=== PATIENT | male | born 1940 | race Caucasian/White ===

== ENCOUNTER → 2017-10-04 | Day surgery (SDC) | payer OTHER ==
[2017-10-01 09:06] VITALS: BMI 26.4
[~2017-10-04] MED LIST: LACTATED RINGERS 1,000 ML IV SCH; LIDOCAINE 1% 20 ML VIAL (10MG/ML) FOR IV START INTRADERMA ONE; LIDOCAINE 1% INJ 10MG/ML (20 ML MDV) ONE; PROPOFOL 10 MG/ML 20 ML VIAL IV ONE
[2017-10-04 11:46] VITALS: RESP 16; TEMP 97
--- NOTE | 2017-10-04 13:14 | P.PCN ---
Date of Procedure: 10/04/17 Procedure(s) Performed: Procedure: Total colonoscopy. Preoperative diagnosis: Anemia. Postoperative diagnosis: Exam within normal limits. Preparation: HalfLytely prep. Sedation: Was provided by anesthesia. Brief clinical history: The patient is 77-year-old male who is scheduled for this evaluation because of anemia and finding of blood in the stools. This evaluation is to rule out colon neoplasia. He has history of chronic reflux on omeprazole for many years. No other alarm symptoms. Procedure: With the patient on his left lateral decubitus position and after informed consent and adequate sedation, the perianal area was inspected and it did not show any fissures or fistulas. There were no masses felt on digital rectal examination. The Olympus CFQ 160L video colonoscope was then inserted in the rectum in the usual fashion and advanced to the cecum. The mucosa appeared healthy. No obvious polyps or tumors were seen. I retroflexed the endoscope in the rectum before the endoscope was withdrawn. The patient tolerated the procedure well. Plan: The patient was reassured. Consideration can be given for an upper GI workup if he continues to manifest anemia and evidence of possible GI source of bleeding. He will follow up with you as planned.
[2017-10-04 13:25] VITALS: BP 128/89; PULSE 62
== END | disposition home or self-care (01) ==
LOC: ORWHC2ENDO 10:31
DX: D64.9 Anemia, unspecified (principal); K92.1 Melena; K21.9 Gastro-esophageal reflux disease without esophagitis; N40.0 Benign prostatic hyperplasia without lower urinary tract symptoms; I10 Essential (primary) hypertension; E78.5 Hyperlipidemia, unspecified; M19.90 Unspecified osteoarthritis, unspecified site; G20 Parkinson's disease; G62.9 Polyneuropathy, unspecified; Z88.0 Allergy status to penicillin; Z88.8 Allergy status to other drugs, medicaments and biological substances; Z79.1 Long term (current) use of non-steroidal anti-inflammatories (NSAID); Z79.899 Other long term (current) drug therapy
CPT/HCPCS: 45378; J2001; J2704

== ENCOUNTER 2018-03-24 06:17 | Day surgery (SDC) | payer MEDICARE, OTHER ==
[2018-03-21 10:48] VITALS: BMI 26.4
[~2018-03-24 06:17] MED LIST changes: -LIDOCAINE 1% 20 ML VIAL (10MG/ML) FOR IV START INTRADERMA ONE; -LIDOCAINE 1% INJ 10MG/ML (20 ML MDV) ONE; -PROPOFOL 10 MG/ML 20 ML VIAL IV ONE
[2018-03-24 07:01] VITALS: TEMP 98.7
[2018-03-24] MEDS ORDERED: LIDOCAINE 1% INJ 10MG/ML (20 ML MDV) ONE (07:44)
[2018-03-24] MEDS ORDERED: PROPOFOL 10 MG/ML 20 ML VIAL IV ONE (07:44)
[2018-03-24 08:08] VITALS: RESP 16
--- NOTE | 2018-03-24 08:11 | P.PCN ---
Date of Procedure: 03/24/18 Procedure(s) Performed: Procedure: Esophagogastroduodenoscopy and biopsy. Preoperative diagnosis: Chronic reflux symptoms and dysphagia. Postoperative diagnosis: 1. Moderately sized hiatal hernia with no obvious esophagitis or complicated reflux disease. 2. Mild antral gastritis. 3. Biopsies obtained from the antrum and esophagus. Preparation and sedation: Was provided by anesthesia. Brief clinical history: The patient is a 77-year-old male who is scheduled for this evaluation because of chronic reflux symptoms and history of dysphagia. The patient has no weight loss, bleeding or anemia. Procedure: With the patient on his left lateral decubitus position and after informed consent and adequate sedation, I passed the Olympus-GIF 160 video upper endoscope through the cricopharyngeus down the esophagus. GE junction was around 40 cm from the incisors and there was a moderately sized hiatal hernia but no obvious esophagitis or complicated reflux disease including any evidence of strictures or Rodriguez's esophagus. The endoscope was then passed into the stomach which was insufflated with air and inspected in detail including the retroflex view in the cardia. There was minimal mottling and erythema in the antrum but no ulcers or erosions. Pyloric channel, duodenal bulb, post bulbar area and descending duodenum appeared within normal limits. I obtained biopsies from the antrum and esophagus then the endoscope was withdrawn. The patient tolerated the procedure well. Plan: The patient was reassured. Will await biopsy results. Further plans based on his course and biopsy results. He will follow up with you as planned.
[2018-03-24 08:24] VITALS: BP 165/67; PULSE 61
== END 2018-03-24 08:46 | disposition home or self-care (01) ==
LOC: ORWHC2ENDO 06:17
DX: K21.0 Gastro-esophageal reflux disease with esophagitis (principal); K29.50 Unspecified chronic gastritis without bleeding; K44.9 Diaphragmatic hernia without obstruction or gangrene; R13.10 Dysphagia, unspecified; I10 Essential (primary) hypertension; G20 Parkinson's disease; G62.9 Polyneuropathy, unspecified; Z79.899 Other long term (current) drug therapy; Z88.0 Allergy status to penicillin; Z88.8 Allergy status to other drugs, medicaments and biological substances
CPT/HCPCS: 88305; 43239; J2001; J2704

== ENCOUNTER → 2018-04-28 | Outpatient (CLI) | payer MEDICARE ==
--- NOTE | 2018-04-28 17:20 | CONS ---
CONSULTATION DATE OF SERVICE: 04/28/2018 This patient is a 77-year-old gentleman who has been evaluated in the sleep center for possible obstructive sleep apnea-hypopnea syndrome. HISTORY OF PRESENT ILLNESS/SLEEP WAKE EVALUATION: Patient's usual sleep schedule is from around 11 p.m. until 4:30 a.m. He has a TV set in the bedroom, but he does not have significant problems with falling asleep. During sleep he stays with his , has moderate snoring and witnessed episodes of stopped breathing during sleep, according to her. He wakes up with gasping for air, restless legs, choking and nocturia 3 times. In the morning he wakes up tired, has difficulties paying attention, falling asleep during the day, has problems with memory, concentration, irritability. He takes naps 3 times a day at 10:30, 1 p.m. and 4 . [place] Sleepiness Scale is significantly increased at 13. PAST MEDICAL HISTORY: 1. Hypertension. 2. BPH. 3. Parkinson disease. PAST SURGICAL HISTORY: 1. Tonsillectomy. 2. surgery. MEDICATIONS: 1. Losartan. 2. Tamsulosin. 3. Omeprazole. 4. Gabapentin. 5. Carbidopa levodopa. 6. Primidone. 7. acetaminophen. 8. Cetirizine. 9. Metronidazole. 10.Voltaren. 11. . 12.B12. 13. . 14.Some vitamin supplements. SOCIAL HISTORY: Positive for smoking cigars. Alcohol consumption: Occasional beer. FAMILY HISTORY: Hypertension, stroke in his grandparents, arthritis, cancer. REVIEW OF SYSTEMS: Multiple awakenings from sleep. Sleepiness during the day. Pain in the body. PHYSICAL EXAMINATION: GENERAL A pleasant gentleman without distress. VITAL SIGNS: BP 141/76, HR 70, RR 16, height 5 feet 9 inches, weight 142.8, temperature 98.1. Oxygen saturation at room air 96%. Body mass index 28.3. HEENT: PERRLA, EOMI. Evaluation of oropharynx showed tongue protrudes midline; moderately low position of soft palate. NECK: Supple. No JVD. Thyroid is not palpable. Circumference 18 inches. LUNGS: Clear to percussion and to auscultation. Good air exchange. No wheezing or rhonchi. HEART: S1, S2 regular. No murmurs, gallops or rubs. ABDOMEN: Soft and nontender. Bowel sounds are present. No organomegaly appreciated. EXTREMITIES : No clubbing or cyanosis. BROOMMAKER: Awake, alert, and oriented X3. Cranial nerves 2 to 7 intact. There is no fasciculation or atrophy. noted. No focal deficits observed. IMPRESSION: 1. Snoring, witnessed episodes of stopped breathing during sleep, low position of soft palate, multiple awakenings from sleep, wide neck at 18 inches, sleepiness, [place] Sleepiness Scale increased at 13; obstructive sleep apnea-hypopnea syndrome. 2. Hypertension. 3. Benign prostatic hypertrophy. 4. History of Parkinson disease. 5. Status post tonsillectomy. 6. Status post surgery. PLAN: 1. Polysomnography for evaluation of patient's breathing during sleep. 2. CPAP/BiPAP titration if sleep study confirms obstructive sleep apnea-hypopnea syndrome. 3. Preferable position during sleep on the side. 4. No driving if patient feels any sleepiness. Patient is aware of civil and criminal liability for unsafe driving. 5. I will see patient for follow-up visit to explain results of testing and following plan. Thank you very much for referring this patient for consultation. Sincerely, Maco Bradley MD, PhD, FAASM Diplomat of [employer] [employer] [employer] Classroom Teacher of [facility] [place] MMODL / SAEID: [id number] /
== END | disposition home or self-care (01) ==
LOC: SLEEP 14:33
PROVIDERS: ATTEND Internal Medicine
DX: G47.33 Obstructive sleep apnea (adult) (pediatric) (principal); M27.8 Other specified diseases of jaws; R35.1 Nocturia; I10 Essential (primary) hypertension; N40.0 Benign prostatic hyperplasia without lower urinary tract symptoms; Z90.89 Acquired absence of other organs; Z86.69 Personal history of other diseases of the nervous system and sense organs; Z79.899 Other long term (current) drug therapy; Z79.1 Long term (current) use of non-steroidal anti-inflammatories (NSAID); Z79.891 Long term (current) use of opiate analgesic; Z87.891 Personal history of nicotine dependence
CPT/HCPCS: 99211

== ENCOUNTER 2019-04-04 16:01 | Inpatient (IN) | payer OTHER, MEDICARE ==
[2019-04-04] MEDS ORDERED: ATROPINE SULFATE 0.1 MG/ML 10ML SYRINGE IV STA (16:37)
--- NOTE | 2019-04-04 16:46 | ED ---
Arrhythmia/Palpitations HPI - General Chief Complaint: Arrhythmia/Palpitations Stated Complaint: Cardiac Issues Time Seen by Provider: 04/04/19 16:28 Source: patient, EMS Mode of arrival: EMS Limitations: no limitations - History of Present Illness Initial Comments: Patient is a 78-year-old male with a history of dementia who presents with a chief complaint of heart palpitations. The patient was started on Flomax 2 days ago and is currently wearing a Holter monitor. [facility] stating that he had an event, that his heart rate was in the 30s and that he should come in the emergency department. Patient states that other than feeling tired he is a symptomatic. He is ambulatory without assistance and sates that he does not feel light headed when he stands up. He cannot identify any additional inciting incident, no aggravating or alleviating factors. timing is constant. - Related Data Home Medications Medication Instructions Recorded Confirmed Acetaminophen Tab [Tylenol Tab] 1,000 mg PO DAILY PRN 10/01/17 04/04/19 Ammonium Lactate Cream [Lac-Hydrin 1 applic TOPICAL DAILY PRN 10/01/17 04/04/19 12% Cream] Carbidopa-Levodopa ER 25-100Mg 1 tab PO QID 10/01/17 04/04/19 [Sinemet CR 25-100 mg] Cholecalciferol [Vitamin D3] 1,000 unit PO DAILY 10/01/17 04/04/19 Cyanocobalamin (Vitamin B-12) 1,000 mcg PO DAILY 10/01/17 04/04/19 [Vitamin B-12] Diclofenac Sodium [Voltaren Gel] 1 applic TOPICAL DAILY PRN 10/01/17 04/04/19 Folic Acid 1 mg PO DAILY 10/01/17 04/04/19 Gabapentin [Neurontin] 400 mg PO QID 10/01/17 04/04/19 Krill/Om-3/Dha/Epa/Phospho/Ast 900 mg PO DAILY 10/01/17 04/04/19 [[place]-3 Krill Oil 300 mg Sfgl] Losartan [Cozaar] 50 mg PO BID 10/01/17 04/04/19 Magnesium Oxide [Mag-Ox] 250 mg PO DAILY 10/01/17 04/04/19 Nortriptyline [Pamelor] 25 mg PO HS 10/01/17 04/04/19 Omeprazole [PriLOSEC] 20 mg PO AC-BRKFST 10/01/17 04/04/19 Primidone [Mysoline] 125 mg PO BID 10/01/17 04/04/19 Tamsulosin [Flomax] 0.4 mg PO HS 10/01/17 04/04/19 Thiamine [Vitamin B-1] 100 mg PO DAILY 10/01/17 04/04/19 Ubidecarenone [Co Q-10] 100 mg PO DAILY 10/01/17 04/04/19 Aspirin [[place] Aspirin EC] 81 mg PO PC-SUPPER 04/04/19 04/04/19 Donepezil [Aricept] 10 mg PO HS 04/04/19 04/04/19 Ferrous Sulfate [Feosol] 325 mg PO DAILY 04/04/19 04/04/19 Finasteride [Proscar] 5 mg PO PC-SUPPER 04/04/19 04/04/19 HYDROcodone/APAP 10-325MG [[place] 1 tab PO DAILY PRN 04/04/19 04/04/19 10-325] Ibuprofen [Motrin] 800 mg PO BID PRN 04/04/19 04/04/19 Nitrofurantoin Monohyd/M-Cryst 100 mg PO BID 04/04/19 04/04/19 [Macrobid] Vitamin E (Dl,Tocopheryl Acet) 400 unit PO DAILY 04/04/19 04/04/19 [Vitamin E] Allergies Allergy/AdvReac Type Severity Reaction Status Date / Time lisinopril Allergy CAN'T Verified 04/04/19 16:55 REMEMBER Penicillins Allergy Anaphylaxis Verified 04/04/19 16:55 simvastatin [From Zocor] Allergy CAN'T Verified 04/04/19 16:55 REMEMBER Review of Systems ROS Statement: Those systems with pertinent positive or pertinent negative responses have been documented in the HPI. ROS Other: All systems not noted in ROS Statement are negative. Past Medical History Past Medical History: GERD/Reflux, Hypertension, Prostate Disorder, Skin Disorder Additional Past Medical History / Comment(s): PARKINSONS, ROSACEA, TREMORS, NEUR OPATHY FEET/LEGS; MINOR BPH. History of Any Multi-Drug Resistant Organisms: None Reported Past Surgical History: Tonsillectomy Additional Past Surgical History / Comment(s): colonoscopies. bilat cataracts Past Anesthesia/Blood Transfusion Reactions: No Reported Reaction Past Psychological History: No Psychological Hx Reported Smoking Status: Current some day smoker Past Alcohol Use History: Occasional Past Drug Use History: None Reported - Past Family History Father Family Medical History: Cancer General Exam Limitations: no limitations General appearance: alert, in no apparent distress Head exam: Present: atraumatic, normocephalic Eye exam: Present: normal appearance ENT exam: Present: normal exam Neck exam: Present: normal inspection Respiratory exam: Present: normal lung sounds bilaterally. Absent: respiratory distress, wheezes Cardiovascular Exam: Present: bradycardia GI/Abdominal exam: Present: soft. Absent: distended, tenderness Rectal exam: Present: deferred Extremities exam: Present: normal inspection Back exam: Present: normal inspection Neurological exam: Present: alert, oriented X3 Psychiatric exam: Present: normal affect, normal mood Skin exam: Present: warm, dry, intact Course Vital Signs 04/04/19 04/04/19 04/04/19 16:07 16:11 16:14 Temperature 98.4 F Pulse Rate 33 L Pulse Rate [ 26 L Pulse Oximetery ] Respiratory 16 Rate Blood Pressure 157/136 O2 Sat by Pulse 96 98 Oximetry 04/04/19 04/04/19 04/04/19 16:15 16:30 16:45 Temperature Pulse Rate 26 L 29 L Pulse Rate [ Pulse Oximetery ] Respiratory Rate Blood Pressure 157/136 175/60 75/51 O2 Sat by Pulse 97 96 94 L Oximetry 04/04/19 04/04/19 04/04/19 16:50 17:00 17:10 Temperature Pulse Rate 28 L 28 L 25 L Pulse Rate [ Pulse Oximetery ] Respiratory Rate Blood Pressure 177/125 177/125 205/190 O2 Sat by Pulse 96 96 97 Oximetry 04/04/19 04/04/19 04/04/19 17:20 17:30 17:40 Temperature Pulse Rate 28 L 27 L 27 L Pulse Rate [ Pulse Oximetery ] Respiratory Rate Blood Pressure 183/139 179/143 176/141 O2 Sat by Pulse 98 100 100 Oximetry 04/04/19 04/04/19 17:50 18:00 Temperature Pulse Rate 28 L 28 L Pulse Rate [ Pulse Oximetery ] Respiratory Rate Blood Pressure 176/64 176/64 O2 Sat by Pulse 99 100 Oximetry Medical Decision Making - Medical Decision Making Patient is a 78-year-old male presents with a chief complaint of bradycardia. On initial evaluation, vitals are stable though his heart rate is between 25 and 30 bpm. EKG shows evidence of third-degree AV block. Case discussed with Dr. Ventura who states he'll evaluate the patient emergency department. We'll hold on acute treatment at this time given patient's stability. Labs reviewed from outside hospital, they were unremarkable. Currently uploading chest x-ray for review. Labs will be resent, visual be admitted for further evaluation. 5:04 PM Repeat EKG performed at 1658 shows what appears to be a third-degree AV block, Versus a second-degree block with 3 -1 conduction. Ventricular rate is 28 bpm. There are no acute signs of ischemia. Case discussed with Dr. bowman who agrees to admission. Chest x-ray reviewed, does not show any acute process. Laboratory evaluation of this patient is unremarkable. Dr. Ventura will take the patient to the EP lab for pacemaker placement. He discussed this care plan with the patient and the patient is agreeable. patient left the ED in stable condition. - Lab Data Result diagrams: 04/04/19 16:56 04/04/19 16:56 Lab Results 04/04/19 04/04/19 04/04/19 Range/Units 16:56 16:56 16:56 WBC 7.2 (3.8-10.6) k/uL RBC 4.11 L (4.30-5.90) m/uL Hgb 13.4 (13.0-17.5) gm/dL Hct 41.0 (39.0-53.0) % MCV 99.8 (80.0-100.0) fL MCH 32.7 (25.0-35.0) pg MCHC 32.8 (31.0-37.0) g/dL RDW 14.4 (11.5-15.5) % Plt Count 289 (150-450) k/uL Neutrophils % 76 % Lymphocytes % 14 % Monocytes % 7 % Eosinophils % 1 % Basophils % 0 % Neutrophils # 5.4 (1.3-7.7) k/uL Lymphocytes # 1.0 (1.0-4.8) k/uL Monocytes # 0.5 (0-1.0) k/uL Eosinophils # 0.1 (0-0.7) k/uL Basophils # 0.0 (0-0.2) k/uL Sodium 133 L (137-145) mmol/L Potassium 5.1 (3.5-5.1) mmol/L Chloride 100 (98-107) mmol/L Carbon Dioxide 24 (22-30) mmol/L Anion Gap 9 mmol/L BUN 24 H (9-20) mg/dL Creatinine 0.87 (0.66-1.25) mg/dL Est GFR (CKD-EPI)AfAm >90 (>60 ml/min/1.73 sqM) Est GFR (CKD-EPI)NonAf 84 (>60 ml/min/1.73 sqM) Glucose 96 (74-99) mg/dL Calcium 9.3 (8.4-10.2) mg/dL Troponin I <0.012 (0.000-0.034) ng/mL Disposition Clinical Impression: Bradycardia, Heart block Disposition: ADMITTED IP TO THIS HOSP Condition: Fair Decision to Admit Reason: Admit from EC - Out of Hospital Transfer - Req. Specs Out of Hospital Transfer - Requested Specifics: Telemetry Unit
[2019-04-04] MEDS ORDERED: NALOXONE 0.4 MG/ML 1 ML VIAL IV PRN (17:02)
[2019-04-04 17:12] LABS: Basophils % (A) 0 %; Eosinophils # (A) 0.1 k/uL (0-0.7); Eosinophils % (A) 1 %; HGB 13.4 gm/dL (13.0-17.5); Lymphocytes % (A) 14 %; MCH 32.7 pg (25.0-35.0); MCHC 32.8 g/dL (31.0-37.0); MCV 99.8 fL (80.0-100.0); Mean Platelet Volume 7.7; Monocytes # (A) 0.5 k/uL (0-1.0); Monocytes % (A) 7 %; Neutrophils # (A) 5.4 k/uL (1.3-7.7); Neutrophils % (A) 76 %; Platelet Count 289 k/uL (150-450); RBC 4.11 m/uL (4.30-5.90); RDW 14.4 % (11.5-15.5); WBC 7.2 k/uL (3.8-10.6)
[2019-04-04 17:19] LABS: African American GFR (CKD) >90 (>60 ml/min/1.73 sqM); Anion Gap 9 mmol/L; Blood Urea Nitrogen 24 mg/dL (9-20); Calcium 9.3 mg/dL (8.4-10.2); Carbon Dioxide 24 mmol/L (22-30); Chloride 100 mmol/L (98-107); Glucose 96 mg/dL (74-99); Potassium 5.1 mmol/L (3.5-5.1); Sodium 133 mmol/L (137-145)
[2019-04-04] MEDS ORDERED: CLINDAMYCIN 600 MG in DEXTROSE 5% IN WATER 50 ML IVPB STA ×2 (18:09)
[2019-04-04] MEDS ORDERED: IV FLUID CONTINUATION 900 ML IV ONE (18:20)
[2019-04-04] MEDS ORDERED: LIDOCAINE 1% INJ 10MG/ML (20 ML MDV) ONE (18:40)
[2019-04-04] MEDS ORDERED: LIDOCAINE 1% INJ 10MG/ML (20 ML MDV) SQ ONE (18:50)
[2019-04-04] MEDS ORDERED: ACETAMINOPHEN TAB 325 MG TAB PO PRN (19:46)
--- NOTE | 2019-04-04 19:53 | P.CRDCN ---
History of Present Illness History of present illness: This is Dr. 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 Hypertension Anaphylaxis with penicillin Parkinson's disease PLAN: Externalized permanent pacemaker for secured temporary pacing Detailed discussion with the patient and his regarding permanent pacing with Bi V pacing He will be 100% paced in his right ventricle with standard dual-chamber pacing and therefore biventricular pacing would be appropriate, to avoid this HPI Called by ER physician regarding this elderly gentleman who presented with a very slow heart rate Twelve-lead ECG shows heart rate of 29 beats a minute with advanced heart block with 3-1 AV conduction Right bundle branch block left anterior fascicular block minimally prolonged [place] interval, consistent with infra-hisian conduction system disease History of hypertension For the last several months the patient has been feeling weak, may be a bit dizzy. According to his he may have had a few dizzy spells and he He is exhausted week takes lots of naps. He was at the [facility]. They noted a heart rate of 30 beats a minute and after considerable deliberation between some physicians, according to the patient, send him home with a monitor He was later called pacing was told that his heart rate was very slow ROS: No fever chills or rigors, no cough, phlegm or expectoration, no nausea, vomiting or diarrhea, no hematuria, dysuria, no musculoskeletal complaints, no strokes or seizures, no skin lesions. A bit dizzy and weak exhausted for several months No chest discomfort May have fallen and been syncopal. He is not sure EXAMINATION: Elevated blood pressure 10987 3 mmHg Pulse rate 2728 beats a minute regular Breath sounds are clear no rhonchi no crackles Heart sounds are soft, there's a soft systolic murmur Abdomen soft nontender Extremities warm no edema REVIEW OF LABS, ECG & MEDICAL DATA Potassium 5.1 urine mildly increased likely secondary to hypoperfusion White count 7.2 Sodium 133 Creatinine 0.87 Normal troponins Past Medical History Past Medical History: GERD/Reflux, Hypertension, Prostate Disorder, Skin Disorder Additional Past Medical History / Comment(s): PARKINSONS, ROSACEA, TREMORS, NEUROPATHY FEET/LEGS; MINOR BPH. History of Any Multi-Drug Resistant Organisms: None Reported Past Surgical History: Tonsillectomy Additional Past Surgical History / Comment(s): colonoscopies. bilat cataracts Past Anesthesia/Blood Transfusion Reactions: No Reported Reaction Past Psychological History: No Psychological Hx Reported Smoking Status: Current some day smoker Past Alcohol Use History: Occasional Past Drug Use History: None Reported - Past Family History Father Family Medical History: Cancer Medications and Allergies Home Medications Medication Instructions Recorded Confirmed Type Acetaminophen Tab [Tylenol Tab] 1,000 mg PO DAILY PRN 10/01/17 04/04/19 History Ammonium Lactate Cream [Lac-Hydrin 1 applic TOPICAL DAILY PRN 10/01/17 04/04/19 History 12% Cream] Cholecalciferol [Vitamin D3] 1,000 unit PO DAILY 10/01/17 04/04/19 History Cyanocobalamin (Vitamin B-12) 1,000 mcg PO DAILY 10/01/17 04/04/19 History [Vitamin B-12] Diclofenac Sodium [Voltaren Gel] 1 applic TOPICAL DAILY PRN 10/01/17 04/04/19 History Gabapentin [Neurontin] 400 mg PO QID 10/01/17 04/04/19 History Krill/Om-3/Dha/Epa/Phospho/Ast 900 mg PO DAILY 10/01/17 04/04/19 History [[place]-3 Krill Oil 300 mg Sfgl] Losartan [Cozaar] 50 mg PO BID 10/01/17 04/04/19 History Nortriptyline [Pamelor] 25 mg PO HS 10/01/17 04/04/19 History Omeprazole [PriLOSEC] 20 mg PO AC-BRKFST 10/01/17 04/04/19 History Primidone [Mysoline] 125 mg PO BID 10/01/17 04/04/19 History RX: Carbidopa-Levodopa ER 25-100Mg 1 tab PO QID 10/01/17 04/04/19 History [Sinemet CR 25-100 mg] RX: Folic Acid 1 mg PO DAILY 10/01/17 04/04/19 History RX: Magnesium Oxide [Mag-Ox] 250 mg PO DAILY 10/01/17 04/04/19 History Tamsulosin [Flomax] 0.4 mg PO HS 10/01/17 04/04/19 History Thiamine [Vitamin B-1] 100 mg PO DAILY 10/01/17 04/04/19 History Ubidecarenone [Co Q-10] 100 mg PO DAILY 10/01/17 04/04/19 History Donepezil [Aricept] 10 mg PO HS 04/04/19 04/04/19 History Finasteride [Proscar] 5 mg PO PC-SUPPER 04/04/19 04/04/19 History HYDROcodone/APAP 10-325MG [[place] 1 tab PO DAILY PRN 04/04/19 04/04/19 History 10-325] Ibuprofen [Motrin] 800 mg PO BID PRN 04/04/19 04/04/19 History Nitrofurantoin Monohyd/M-Cryst 100 mg PO BID 04/04/19 04/04/19 History [Macrobid] RX: Aspirin [[place] Aspirin EC] 81 mg PO PC-SUPPER 04/04/19 04/04/19 History RX: Ferrous Sulfate [Feosol] 325 mg PO DAILY 04/04/19 04/04/19 History Vitamin E (Dl,Tocopheryl Acet) 400 unit PO DAILY 04/04/19 04/04/19 History [Vitamin E] Allergies Allergy/AdvReac Type Severity Reaction Status Date / Time lisinopril Allergy CAN'T Verified 04/04/19 16:55 REMEMBER Penicillins Allergy Anaphylaxis Verified 04/04/19 16:55 simvastatin [From Zocor] Allergy CAN'T Verified 04/04/19 16:55 REMEMBER Physical Exam Vitals: Vital Signs Temp Pulse Pulse Resp BP Pulse Ox 04/04/19 18:20 169/63 04/04/19 18:10 27 L 169/63 100 04/04/19 18:00 28 L 176/64 100 04/04/19 17:50 28 L 176/64 99 04/04/19 17:40 27 L 176/141 100 04/04/19 17:30 27 L 179/143 100 04/04/19 17:20 28 L 183/139 98 04/04/19 17:10 25 L 205/190 97 04/04/19 17:00 28 L 177/125 96 04/04/19 16:50 28 L 177/125 96 04/04/19 16:45 29 L 75/51 94 L 04/04/19 16:30 26 L 175/60 96 04/04/19 16:15 157/136 97 04/04/19 16:14 26 L 04/04/19 16:11 98 04/04/19 16:07 98.4 F 33 L 16 157/136 96 Intake and Output 04/04/19 04/04/19 04/04/19 06:59 14:59 22:59 Intake Total 104 Output Total 400 Balance -296 Intake: IV 104 Output: Urine 400 Other: Weight 84.822 kg Results 04/04/19 16:56 04/04/19 16:56 Cardiac Enzymes 04/04/19 Range/Units 16:56 Troponin I <0.012 (0.000-0.034) ng/mL CBC 04/04/19 Range/Units 16:56 WBC 7.2 (3.8-10.6) k/uL RBC 4.11 L (4.30-5.90) m/uL Hgb 13.4 (13.0-17.5) gm/dL Hct 41.0 (39.0-53.0) % Plt Count 289 (150-450) k/uL Comprehensive Metabolic Panel 04/04/19 Range/Units 16:56 Sodium 133 L (137-145) mmol/L Potassium 5.1 (3.5-5.1) mmol/L Chloride 100 (98-107) mmol/L Carbon Dioxide 24 (22-30) mmol/L BUN 24 H (9-20) mg/dL Creatinine 0.87 (0.66-1.25) mg/dL Glucose 96 (74-99) mg/dL Calcium 9.3 (8.4-10.2) mg/dL Current Medications Generic Name Dose Route Start Last Admin Trade Name Freq PRN Reason Stop Dose Admin HCTZ/Losartan Potassium 1 each 04/04/19 20:00 Hyzaar 50-12.5 PO DAILY SHYANNE Naloxone HCl 0.2 mg 04/04/19 17:02 Narcan IV Q2M PRN Opioid Reversal Intake and Output 04/04/19 04/04/19 04/04/19 06:59 14:59 22:59 Intake Total 104 Output Total 400 Balance -296 Intake: IV 104 Output: Urine 400 Other: Weight 84.822 kg Patient Weight 04/05/19 06:59 Weight 84.822 kg 04/04/19 16:56 04/04/19 16:56
[2019-04-04] MEDS ORDERED: SODIUM CHLORIDE 0.9% 1,000 ML IV SCH ×2 (20:00)
--- NOTE | 2019-04-04 20:02 | P.PCN ---
Preoperative Diagnosis: Diagnosis Advanced heart block, 3-1 AV block, right bundle branch block left anterior fascicular block, infrahisian disease Symptomatic Severe bradycardia 27 beats a minute Procedure Patient was brought to the EP lab in a fasting state. Written informed consent was obtained prior to the procedure. The right pectoral area was prepped and draped as a protocol and under complete sterile precautions left axillary vein access was obtained. The venous sheath was placed. Via this a Metronic 50-70 m screw-in lead was placed in the right ventricle and screwed in. Pacing threshold was less than 1 mA This is then connected to the pacemaker can, leads and can secured to the skin and dressed Basic programmed to VVI at 60 PPM Impression Successful implantation of for temporary, externalized permanent pacemaker for secured permanent pacing for symptomatic infrahisian conduction system disease before proceeding with biventricular pacing on
--- NOTE | 2019-04-04 20:28 | XR ---
EXAMINATION: XR chest 1V portable DATE AND TIME: 04/04/2019 8:15 PM CLINICAL INDICATION: PHH; Lead placement check, pneumothorax TECHNIQUE: AP portable upright COMPARISON: None FINDINGS: Cardiac pacemaker and EKG leads noted. The lungs are clear. The pleural spaces are negative. The cardiac silhouette is mildly enlarged. The remainder of the mediastinal silhouette is unremarkabl e. There is a vertically oriented linear array of multilevel posterior lateral healed/remodeled rib frac tures, involving at least the right 6 through 8 ribs. No acute skeletal findings. The soft tissues are negative for acute findings. IMPRESSION: NO ACUTE PROCESS.
[2019-04-04] MEDS ORDERED: ACETAMINOPHEN IV (For NPO) 1,000 MG in EMPTY BAG 1 BAG IVPB ONE (20:30)
--- NOTE | 2019-04-04 21:37 | P.HPIM ---
History of Present Illness H&P Date: 04/04/19 Chief Complaint: Tired History of presenting complaint: This is a very pleasant [address] Faustin. Chronic stable medical conditions include GERD, hypertension, BPH, Parkinson's disease, rosacea peripheral neuropathy lower extremity. Patient closed about 6 months has been feeling weak and tired and they noted that the patient's heart rate has been going down. Sometimes. He was was even having falls and this was as scribed to his Parkinson's. Eventually patient on himself for Holter monitor from the [facility]. The cardiac yesterday that his heart rate dropped down to about 30 and for that reason patient was sent in here. Patient also has been getting dizzy lightheaded. Getting tired very easily. Patient normally does use a cane. Patient's EKG revealed 3: [address] All Peralta from cardiology to the patient and had a successful implantation of a temporary, externalized permanent pacemaker. Plan is to get a permanent pacemaker placed on . Patient's is at the bedside. Review of systems: GEN.: Tired EYES: None HEENT: None NECK: None RESPIRATORY: None CARDIOVASCULAR: None GASTROINTESTINAL: None GENITOURINARY: Urinary frequency MUSCULOSKELETAL: Pain in the joints LYMPHATICS: None HEMATOLOGICAL: None PSYCHIATRY: None NEUROLOGICAL: Tremors, gait dysfunction Social history: Alcohol occasionally, cigar occasionally, , uses a cane Family history: Cancer type unknown Physical examination: VITAL SIGNS: 98.4, 33, 16, 157/1 36, 96% room air GENERAL: Average built, sitting up, comfortable. EYES: Pupils equal. Conjunctiva normal. HEENT: External appearance of nose and ears normal, oral cavity grossly normal. NECK: JVD not raised; masses not palpable. HEART: Heart sounds irregular; no edema. LUNGS: Respiratory rate normal; slightly decreased breath sounds. ABDOMEN: Soft, nontender, liver spleen not palpable, no masses palpable. PSYCH: Alert and oriented x3; mood and affect normal. NEUROLOGICAL: Cranial nerves grossly intact; no facial asymmetry, power and sensation grossly intact, fine tremors. 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 All Peralta. A permanent pacemaker will be placed on . Home medications resumed. Lovenox for DVT prophylaxis. Care was discussed with the patient at the bedside. Past Medical History Past Medical History: GERD/Reflux, Hypertension, Prostate Disorder, Skin Disorder Additional Past Medical History / Comment(s): PARKINSONS, ROSACEA, TREMORS, NEUROPATHY FEET/LEGS; MINOR BPH. History of Any Multi-Drug Resistant Organisms: None Reported Past Surgical History: Tonsillectomy Additional Past Surgical History / Comment(s): colonoscopies. bilat cataracts Past Anesthesia/Blood Transfusion Reactions: No Reported Reaction Past Psychological History: No Psychological Hx Reported Smoking Status: Current some day smoker Past Alcohol Use History: Occasional Past Drug Use History: None Reported - Past Family History Father Family Medical History: Cancer Medications and Allergies Home Medications Medication Instructions Recorded Confirmed Type Acetaminophen Tab [Tylenol Tab] 1,000 mg PO DAILY PRN 10/01/17 04/04/19 History Ammonium Lactate Cream [Lac-Hydrin 1 applic TOPICAL DAILY PRN 10/01/17 04/04/19 History 12% Cream] Carbidopa-Levodopa ER 25-100Mg 1 tab PO QID 10/01/17 04/04/19 History [Sinemet CR 25-100 mg] Cholecalciferol [Vitamin D3] 1,000 unit PO DAILY 10/01/17 04/04/19 History Cyanocobalamin (Vitamin B-12) 1,000 mcg PO DAILY 10/01/17 04/04/19 History [Vitamin B-12] Diclofenac Sodium [Voltaren Gel] 1 applic TOPICAL DAILY PRN 10/01/17 04/04/19 History Folic Acid 1 mg PO DAILY 10/01/17 04/04/19 History Gabapentin [Neurontin] 400 mg PO QID 10/01/17 04/04/19 History Krill/Om-3/Dha/Epa/Phospho/Ast 900 mg PO DAILY 10/01/17 04/04/19 History [Nunda-3 Krill Oil 300 mg Sfgl] Losartan [Cozaar] 50 mg PO BID 10/01/17 04/04/19 History Magnesium Oxide [Mag-Ox] 250 mg PO DAILY 10/01/17 04/04/19 History Nortriptyline [Pamelor] 25 mg PO HS 10/01/17 04/04/19 History Omeprazole [PriLOSEC] 20 mg PO AC-BRKFST 10/01/17 04/04/19 History Primidone [Mysoline] 125 mg PO BID 10/01/17 04/04/19 History Tamsulosin [Flomax] 0.4 mg PO HS 10/01/17 04/04/19 History Thiamine [Vitamin B-1] 100 mg PO DAILY 10/01/17 04/04/19 History Ubidecarenone [Co Q-10] 100 mg PO DAILY 10/01/17 04/04/19 History Aspirin [[place] Aspirin EC] 81 mg PO PC-SUPPER 04/04/19 04/04/19 History Donepezil [Aricept] 10 mg PO HS 04/04/19 04/04/19 History Ferrous Sulfate [Feosol] 325 mg PO DAILY 04/04/19 04/04/19 History Finasteride [Proscar] 5 mg PO PC-SUPPER 04/04/19 04/04/19 History HYDROcodone/APAP 10-325MG [[place] 1 tab PO DAILY PRN 04/04/19 04/04/19 History 10-325] Ibuprofen [Motrin] 800 mg PO BID PRN 04/04/19 04/04/19 History Nitrofurantoin Monohyd/M-Cryst 100 mg PO BID 04/04/19 04/04/19 History [Macrobid] Vitamin E (Dl,Tocopheryl Acet) 400 unit PO DAILY 04/04/19 04/04/19 History [Vitamin E] Allergies Allergy/AdvReac Type Severity Reaction Status Date / Time lisinopril Allergy CAN'T Verified 04/04/19 16:55 REMEMBER Penicillins Allergy Anaphylaxis Verified 04/04/19 16:55 simvastatin [From Zocor] Allergy CAN'T Verified 04/04/19 16:55 REMEMBER Physical Exam Vitals: Vital Signs Temp Pulse Pulse Resp BP Pulse Ox 04/04/19 18:20 169/63 04/04/19 18:10 27 L 169/63 100 04/04/19 18:00 28 L 176/64 100 04/04/19 17:50 28 L 176/64 99 04/04/19 17:40 27 L 176/141 100 04/04/19 17:30 27 L 179/143 100 04/04/19 17:20 28 L 183/139 98 04/04/19 17:10 25 L 205/190 97 04/04/19 17:00 28 L 177/125 96 04/04/19 16:50 28 L 177/125 96 04/04/19 16:45 29 L 75/51 94 L 04/04/19 16:30 26 L 175/60 96 04/04/19 16:15 157/136 97 04/04/19 16:14 26 L 04/04/19 16:11 98 04/04/19 16:07 98.4 F 33 L 16 157/136 96 Intake and Output 04/04/19 04/04/19 04/04/19 06:59 14:59 22:59 Intake Total 104 Output Total 400 Balance -296 Intake: IV 104 Output: Urine 400 Other: Weight 84.822 kg Results CBC & Chem 7: 04/04/19 16:56 04/04/19 16:56 Labs: Abnormal Lab Results - Last 24 Hours (Table) 04/04/19 04/04/19 Range/Units 16:56 16:56 RBC 4.11 L (4.30-5.90) m/uL Sodium 133 L (137-145) mmol/L BUN 24 H (9-20) mg/dL
[2019-04-04] MEDS: LOSARTAN-HCTZ 50-12.5 MG 1 EACH TAB PO SCH (21:40)
[2019-04-04 22:01] VITALS: BMI 25.8
[2019-04-04] MEDS: CLINDAMYCIN 900 MG in DEXTROSE 5% IN WATER 50 ML IVPB SCH ×2 (22:52)
[2019-04-05] MEDS: CLINDAMYCIN 900 MG in DEXTROSE 5% IN WATER 50 ML IVPB SCH ×6 (05:09→17:22)
[2019-04-05] MEDS: LOSARTAN-HCTZ 50-12.5 MG 1 EACH TAB PO SCH ×2 (09:16→17:22)
[2019-04-05 14:31] LABS: Basophils % (A) 0 %; Eosinophils % (A) 0 %; HCT 39.9 % (39.0-53.0); HGB 13.2 gm/dL (13.0-17.5); Lymphocytes # (A) 0.7 k/uL (1.0-4.8); Lymphocytes % (A) 7 %; MCH 32.8 pg (25.0-35.0); MCV 99.4 fL (80.0-100.0); Mean Platelet Volume 8.1; Monocytes # (A) 0.5 k/uL (0-1.0); Monocytes % (A) 5 %; Neutrophils # (A) 8.8 k/uL (1.3-7.7); Neutrophils % (A) 86 %; Platelet Count 262 k/uL (150-450); RBC 4.02 m/uL (4.30-5.90); RDW 14.2 % (11.5-15.5); WBC 10.2 k/uL (3.8-10.6)
[2019-04-05 14:45] LABS: African American GFR (CKD) >90 (>60 ml/min/1.73 sqM); Anion Gap 10 mmol/L; Blood Urea Nitrogen 17 mg/dL (9-20); Calcium 9.3 mg/dL (8.4-10.2); Carbon Dioxide 28 mmol/L (22-30); Chloride 96 mmol/L (98-107); Glucose 167 mg/dL (74-99); Potassium 4.5 mmol/L (3.5-5.1); Sodium 134 mmol/L (137-145)
--- NOTE | 2019-04-05 14:47 | P.PN ---
Subjective This is Diya Davis PA-C dictating a progress note on this patient The patient was interviewed and examined by me as well as by Dr. Ventura Case discussed with Dr. 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 He has had increasing symptoms of fatigue, shortness of breath, and dizziness, possibly presyncope over the last few months. He was found to have severe bradycardia with advanced heart block. A temporary externalized pacemaker was placed. He is doing well postoperatively. Denies any chest pain, shortness of breath, palpitations, dizziness, lightheadedness, syncope. EXAMINATION Patient is afebrile, pulse 60, respirations 16, blood pressure 186/77, oxygen saturation 98% on room air Patient seen and examined resting comfortably and his chair Externalized permanent pacemaker dressing clean dry and intact Lungs are clear to auscultation bilaterally Heart is regular, soft ejection systolic murmur appreciated No lower extremity edema REVIEW OF LABS, ECG 7 WBC 10.2, hemoglobin 13.2 Awaiting echocardiogram results Objective - Vital Signs Vital signs: Vital Signs Temp 98.3 F 04/05/19 08:15 Pulse 60 04/05/19 11:18 Resp 16 04/05/19 11:18 BP 187/84 04/05/19 11:18 Pulse Ox 95 04/05/19 11:18 Intake & Output 04/04/19 04/05/19 04/05/19 18:59 06:59 18:59 Intake Total 104 350 120 Output Total 200 2850 600 Balance -96 -2500 -480 Weight 84.822 kg 84.5 kg Intake: IV 104 Intake, IV Titration 100 Amount Sodium Chloride 0.9% 1, 100 000 ml @ 50 mls/hr IV . Q20H [facility] Rx#:[id number] Oral 250 120 Output: Urine 200 2850 600 Other: Voiding Method Urinal Urinal # Voids 6 0 # Bowel Movements 2 - Labs CBC & Chem 7: 04/05/19 14:11 04/05/19 14:11 Labs: Abnormal Lab Results - Last 24 Hours (Table) 04/04/19 04/04/19 04/05/19 Range/Units 16:56 16:56 14:11 RBC 4.11 L 4.02 L (4.30-5.90) m/uL Neutrophils # 8.8 H (1.3-7.7) k/uL Lymphocytes # 0.7 L (1.0-4.8) k/uL Sodium 133 L (137-145) mmol/L Chloride (98-107) mmol/L BUN 24 H (9-20) mg/dL Glucose (74-99) mg/dL 04/05/19 Range/Units 14:11 RBC (4.30-5.90) m/uL Neutrophils # (1.3-7.7) k/uL Lymphocytes # (1.0-4.8) k/uL Sodium 134 L (137-145) mmol/L Chloride 96 L (98-107) mmol/L BUN (9-20) mg/dL Glucose 167 H (74-99) mg/dL
[2019-04-05] MEDS ORDERED: DICLOFENAC SODIUM GEL 100 GM TUBE TOPICAL PRN (15:44)
[2019-04-05] MEDS ORDERED: AMMONIUM LACTATE 12% CREAM 140 GM TUBE TOPICAL PRN (15:44)
[2019-04-05] MEDS ORDERED: HYDROcodone/APAP 10-325MG 1 EACH TAB PO PRN (15:44)
[2019-04-05] MEDS: ASPIRIN 81 MG PO SCH (17:22)
[2019-04-05] MEDS: GABAPENTIN 400 MG CAP PO SCH ×2 (17:22→20:35)
[2019-04-05] MEDS: FINASTERIDE 5 MG TAB PO SCH (17:22)
[2019-04-05] MEDS: CARBIDOPA-LEVODOPA ER 25-100MG 1 EACH TABLET.ER PO SCH ×2 (17:23→20:39)
[2019-04-05] MEDS: DONEPEZIL 10 MG TAB PO SCH (20:35)
[2019-04-05] MEDS: TAMSULOSIN 0.4 MG CAP.ER.24H PO SCH (20:35)
[2019-04-05] MEDS: MAGNESIUM OXIDE 400 MG TAB PO SCH (20:35)
[2019-04-05] MEDS: PRIMIDONE 250 MG TAB PO SCH (20:37)
[2019-04-05] MEDS: NITROFURANTOIN MONOHYD/M-CRYST 100 MG CAP PO SCH (20:38)
[2019-04-05] MEDS: NORTRIPTYLINE 25 MG CAP PO SCH (20:38)
[2019-04-05] MEDS ORDERED: amLODIPine 5 MG TAB PO STA (23:29)
--- NOTE | 2019-04-06 00:18 | P.PN ---
Progress Note - Text Progress Note Date: 04/05/19 Chief Complaint: Tired History of presenting complaint: This is a very pleasant [address] Faustin. Chronic stable medical conditions include GERD, hypertension, BPH, Parkinson's disease, rosacea peripheral neuropathy lower extremity. Patient closed about 6 months has been feeling weak and tired and they noted that the patient's heart rate has been going down. Sometimes. He was was even having falls and this was as scribed to his Parkinson's. Eventually patient on himself for Holter monitor from the [facility]. The cardiac yesterday that his heart rate dropped down to about 30 and for that reason patient was sent in here. Patient also has been getting dizzy lightheaded. Getting tired very easily. Patient normally does use a cane. Patient's EKG revealed 3: [address] All Peralta from cardiology to the patient and had a successful implantation of a temporary, externalized permanent pacemaker. Plan is to get a permanent pacemaker placed on . Today-sitting up in bed. Feels a bit better. No new issues. at the bedside.. Review of systems: Was done for constitutional, cardiovascular, GI, pulmonary. relevant finding as above Current medications are reviewed in today's chart from electronic record Physical examination: VITAL SIGNS: 98.3, 60, 16, 186/77, 98% room air GENERAL: Propped up in bed today appears more comfortable today. EYES: Pupils equal. Conjunctiva normal. HEENT: External appearance of nose and ears normal, oral cavity grossly normal. NECK: JVD not raised; masses not palpable. HEART: Heart sounds irregular; no edema. LUNGS: Respiratory rate normal; slightly decreased breath sounds. ABDOMEN: Soft, nontender, liver spleen not palpable, no masses palpable. PSYCH: Alert and oriented x3; mood and affect normal. NEUROLOGICAL: Cranial nerves grossly intact; no facial asymmetry, power and sensation grossly intact, fine tremors. 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 Care was discussed with the patient. Awaiting a permanent pacemaker placement tomorrow
[2019-04-06] MEDS: IBUPROFEN 800 MG TAB PO PRN ×2 (03:04→21:17)
[2019-04-06] MEDS: PANTOPRAZOLE 40 MG TABLET PO SCH (06:43)
[2019-04-06 07:14] LABS: Calcium 9.5 mg/dL (8.4-10.2); Potassium 4.7 mmol/L (3.5-5.1)
[2019-04-06] MEDS: THIAMINE 100 MG TAB PO SCH (08:45)
[2019-04-06] MEDS: FERROUS SULFATE 325 MG TAB PO SCH (08:45)
[2019-04-06] MEDS: MAGNESIUM OXIDE 400 MG TAB PO SCH ×2 (08:45→21:21)
[2019-04-06] MEDS: FOLIC ACID 1 MG TAB PO SCH (08:45)
[2019-04-06] MEDS: CYANOCOBALAMIN 500 MCG TAB PO SCH (08:45)
[2019-04-06] MEDS: GABAPENTIN 400 MG CAP PO SCH ×4 (08:45→21:17)
[2019-04-06] MEDS: LOSARTAN-HCTZ 50-12.5 MG 1 EACH TAB PO SCH (08:45)
[2019-04-06] MEDS: CARBIDOPA-LEVODOPA ER 25-100MG 1 EACH TABLET.ER PO SCH ×4 (08:47→21:03)
[2019-04-06] MEDS: NITROFURANTOIN MONOHYD/M-CRYST 100 MG CAP PO SCH ×2 (08:48→21:02)
[2019-04-06] MEDS: PRIMIDONE 250 MG TAB PO SCH ×2 (08:48→21:02)
[2019-04-06] MEDS: VITAMIN E (DL,TOCOPHERYL ACET) 400 UNIT CAP PO SCH (08:49)
[2019-04-06] MEDS ORDERED: CLINDAMYCIN 600 MG in SODIUM CHLORIDE 0.9% IRRIGATIO 250 ML IRRIGATION ONE (12:00)
[2019-04-06] MEDS ORDERED: CLINDAMYCIN 900 MG in DEXTROSE 5% IN WATER 50 ML IVPB ONE ×2 (12:00)
--- NOTE | 2019-04-06 14:27 | CDI ---
Documentation Clarification Form Date: 04/06/2019 1:42:41 PM From: Andria Sargent RN, CCDS Admit Date: 04/04/2019 5:02:00 PM Patient Name: Fer Price Visit Number: [id number] Discharge Date: ATTENTION: The Clinical Documentation Specialists (CDI) and [facility] Coding Staff appreciate your assistance in clarifying documentation. Please respond to the clarification below the line at the bottom and electronically sign. The CDI & [facility] Coding staff will review the response and follow-up if needed. Please note: Queries are made part of the Legal Health Record. If you have any questions, please contact the author of this message via ITS. Dr. Hemant Ventura Twelve-lead ECG shows heart rate of 29 beats a minute with advanced heart block with 3-1 AV conduction was documented in the consult on 04/04/19 and in subsequent documentation and further clarification is needed. History/Risk factors: Hypertension, Current same day smoker Clinical Indicators: 78-year-old male present with complaint of heart palpitations. He was wearing a Holter monitor and was notified that his heart rate was in the 30s. He has been feeling weak, may be a bit dizzy. Vital signs on admission: 156/136 33 16 98.4 96 % RA EKG/telemetry: heart rate 29 beats a minute with advanced heart block with 3-1 AV conduction Right bundle branch block left anterior fascicular block minimally prolonged AL interval, consistent with infra-hasian conduction system disease. Treatment: panel monitor Externalized permanent pacemaker placement for temporary pacing Hyzaar 50-12.5 PO BID ECHO In your professional opinion, can you please further clarify the 3:1 AV Block, if known? Advanced heart block 3:1 AV first degree Advanced heart block 3:1 AV secondary degree Atrioventricular block complete Other, please specify Unable to determine (Last Revision: December 2017) Advanced heart block 3-1 AV second-degree MTDD
[2019-04-06] MEDS ORDERED: MIDAZOLAM 2 MG/2 ML VIAL ONE (17:09)
[2019-04-06] MEDS ORDERED: fentaNYL (PF) 50 MCG/ML 2 ML AMP ONE (17:09)
--- NOTE | 2019-04-06 17:32 | P.PN ---
Progress Note - Text Progress Note Date: 04/06/19 Chief Complaint: Tired Interval history: This is a very pleasant [address] Faustin. Chronic stable medical conditions include GERD, hypertension, BPH, Parkinson's disease, rosacea peripheral neuropathy lower extremity. Patient closed about 6 months has been feeling weak and tired and they noted that the patient's heart rate has been going down. Sometimes. He was was even having falls and this was as scribed to his Parkinson's. Eventually patient on himself for Holter monitor from the [facility]. The cardiac yesterday that his heart rate dropped down to about 30 and for that reason patient was sent in here. Patient also has been getting dizzy lightheaded. Getting tired very easily. Patient normally does use a cane. Patient's EKG revealed 3: [address] All Peralta from cardiology to the patient and had a successful implantation of a temporary, externalized permanent pacemaker. Plan is to get a permanent pacemaker placed on . Today-Stable. Awaiting.. Permanent pacemaker this afternoon. No new issues. Did talk the bathroom. Review of systems: Was done for constitutional, cardiovascular, GI, pulmonary. relevant finding as above Active Medications Acetaminophen (Tylenol Tab) 650 mg PO Q6HR PRN PRN Reason: Mild Pain Hydrocodone Bitart/Acetaminophen ([place] 10) 1 each PO DAILY PRN PRN Reason: LEG PAIN Last Admin: 04/05/19 20:36 Dose: 1 each Documented by: Aspirin (Aspirin) 81 mg PO PC-SUPPER [facility] Last Admin: 04/05/19 17:22 Dose: 81 mg Documented by: Carbidopa/Levodopa (Sinemet Er 25-100) 1 each PO QID [facility] Last Admin: 04/06/19 12:33 Dose: 1 each Documented by: Cyanocobalamin (Vitamin B-12) 1,000 mcg PO DAILY [facility] Last Admin: 04/06/19 08:45 Dose: 1,000 mcg Documented by: Diclofenac Sodium (Voltaren Gel) 1 gm TOPICAL DAILY PRN PRN Reason: Pain Donepezil HCl (Aricept) 10 mg PO HS [facility] Last Admin: 04/05/19 20:35 Dose: 10 mg Documented by: Ferrous Sulfate (Feosol) 325 mg PO DAILY [facility] Last Admin: 04/06/19 08:45 Dose: 325 mg Documented by: Finasteride (Proscar) 5 mg PO PC-SUPPER [facility] Last Admin: 04/05/19 17:22 Dose: 5 mg Documented by: Folic Acid (Folic Acid) 1 mg PO DAILY [facility] Last Admin: 04/06/19 08:45 Dose: 1 mg Documented by: Gabapentin (Neurontin) 400 mg PO QID [facility] Last Admin: 04/06/19 12:33 Dose: 400 mg Documented by: HCTZ/Losartan Potassium (Hyzaar 50-12.5) 1 each PO BID [facility] Last Admin: 04/06/19 08:45 Dose: 1 each Documented by: Ibuprofen (Motrin) 800 mg PO BID PRN PRN Reason: LEG PAIN Last Admin: 04/06/19 03:04 Dose: 800 mg Documented by: Lactic Acid (Ammonium Lactate) 1 applic TOPICAL DAILY PRN PRN Reason: DRY CRACKED FEET Magnesium Oxide (Mag-Ox) 400 mg PO [facility] Last Admin: 04/05/19 20:35 Dose: 400 mg Documented by: Magnesium Oxide (Mag-Ox) 200 mg PO DAILY [facility] Last Admin: 04/06/19 08:45 Dose: 200 mg Documented by: Naloxone HCl (Narcan) 0.2 mg IV Q2M PRN PRN Reason: Opioid Reversal Nitrofurantoin Macrocrystals (Macrobid) 100 mg PO BID [facility] Last Admin: 04/06/19 08:48 Dose: 100 mg Documented by: Nortriptyline HCl (Pamelor) 25 mg PO [facility] Last Admin: 04/05/19 20:38 Dose: 25 mg Documented by: Pantoprazole Sodium (Protonix) 40 mg PO AC-BRKFST [facility] Last Admin: 04/06/19 06:43 Dose: 40 mg Documented by: Primidone (Mysoline) 125 mg PO BID [facility] Last Admin: 04/06/19 08:48 Dose: 125 mg Documented by: Sodium Chloride (Saline Flush) 10 ml IV Q12HR [facility] Last Admin: 04/06/19 08:52 Dose: 10 ml Documented by: Tamsulosin HCl (Flomax) 0.4 mg PO [facility] Last Admin: 04/05/19 20:35 Dose: 0.4 mg Documented by: Thiamine HCl (Vitamin B-1) 100 mg PO DAILY [facility] Last Admin: 04/06/19 08:45 Dose: 100 mg Documented by: Vitamin E (Vitamin E) 400 unit PO DAILY [facility] Last Admin: 04/06/19 08:49 Dose: 400 unit Documented by: Physical examination: VITAL SIGNS: 97.7, 60, 16, 127/63, 97% room air GENERAL: Sitting up in a chair, comfortable. EYES: Pupils equal. Conjunctiva normal. HEENT: External appearance of nose and ears normal, oral cavity grossly normal. NECK: JVD not raised; masses not palpable. HEART: Heart sounds irregular; no edema. LUNGS: Respiratory rate normal; slightly decreased breath sounds. ABDOMEN: Soft, nontender, liver spleen not palpable, no masses palpable. PSYCH: Alert and oriented x3; mood and affect normal. NEUROLOGICAL: Cranial nerves grossly intact; no facial asymmetry, power and sensation grossly intact, fine tremors. 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 Awaiting permanent pacemaker placement this up. Care discussed with the patient and his .
[2019-04-06] MEDS ORDERED: ACETAMINOPHEN TAB 325 MG TAB PO PRN (17:38)
[2019-04-06] MEDS ORDERED: HYDROcodone/APAP 5-325MG 1 EACH TAB PO PRN (17:38)
--- NOTE | 2019-04-06 17:38 | P.PN ---
Progress Note - Text 78-year-old male patient with 3-1 AV block/second degree AV block Temporary pacemaker implanted Reduced LV systolic function Essential hypertension Plan biventricular pacing to avoid RV pacing Likelihood of 100% RV pacing with standard dual-chamber pacemaker Sodium 133, potassium 4.7 BUN 18 creatinine 1.09 normal troponin Plan Biventricular pacemaker implantation and removal of temporary pacemaker
[2019-04-06] MEDS: IOPAMIDOL-250 50ML BTL IV ONE ×2 (17:42→18:28)
[2019-04-06] MEDS ORDERED: LIDOCAINE 1% INJ 10MG/ML (20 ML MDV) ONE (17:46)
[2019-04-06] MEDS ORDERED: CLINDAMYCIN 150 MG/ML 4 ML VIAL IVPB ONE (17:47)
[2019-04-06] MEDS ORDERED: IV FLUID CONTINUATION 900 ML IV ONE (17:59)
[2019-04-06] MEDS ORDERED: LIDOCAINE 1% INJ 10MG/ML (20 ML MDV) SQ ONE (18:02)
[2019-04-06] MEDS ORDERED: ACETAMINOPHEN IV (For NPO) 1,000 MG in EMPTY BAG 1 BAG IVPB ONE (18:15)
[2019-04-06] MEDS ORDERED: METOPROLOL SUCCINATE (ER) 50 MG TAB.ER.24H PO SCH (20:15)
[2019-04-06] MEDS: CLINDAMYCIN 900 MG in DEXTROSE 5% IN WATER 50 ML IVPB SCH ×2 (20:30)
[2019-04-06] MEDS ORDERED: PRAVASTATIN SODIUM 20 MG TAB PO SCH (21:00)
[2019-04-06] MEDS: NORTRIPTYLINE 25 MG CAP PO SCH (21:02)
[2019-04-06] MEDS: ASPIRIN 81 MG PO SCH (21:16)
[2019-04-06] MEDS: TAMSULOSIN 0.4 MG CAP.ER.24H PO SCH (21:17)
[2019-04-06] MEDS: FINASTERIDE 5 MG TAB PO SCH (21:17)
[2019-04-06] MEDS: DONEPEZIL 10 MG TAB PO SCH (21:17)
[2019-04-07] MEDS: CLINDAMYCIN 900 MG in DEXTROSE 5% IN WATER 50 ML IVPB SCH ×6 (01:09→12:32)
--- NOTE | 2019-04-07 05:44 | CE ---
CARDIAC ELECTROPHYSIOLOGY REPORT Mr. Price is a 78-year-old male patient who presented with severe bradycardia on account of 3:1 AV block with right bundle branch block, left anterior fascicular block (second degree) with symptoms of tiredness, fatigue, weakness, dizziness, and possibly even intermittent episodes of syncope according to his . He first underwent temporary pacing 2 days back and then he was brought in today for biventricular pacemaker implantation. His left ventricular ejection fraction is reduced and therefore biventricular pacing was recommended. It was recommended on account of 100% likelihood of right ventricular pacing (100% RV pacing) with a standard dual-chamber pacemaker. Patient was brought to the EP lab in a fasting state. Written informed consent was obtained prior to the procedure. The left pectoral area was prepped and draped as per protocol and 1% lidocaine was used for local anesthesia. IV antibiotics were administered. A 4 cm incision was made parallel to the deltopectoral groove, about 1.5 cm medial to it. The incision was carried down to the level of the pectoralis muscle. A subfascial pocket was made. Hemostasis was assured. The left axillary vein was accessed at 3 separate points under fluoroscopy and via appropriately-sized introducer sheaths 3 leads were positioned. The atrial lead was [employer] model #2088TC, 52 cm in length and serial number [id number]. The P waves were 5 mV, pacing impedance 516 ohms, pacing threshold 0.5 V at 0.5 milliseconds. Ten volt test is negative. The RV lead was a [employer] model #7122, 65 cm in length and serial number [id number], BF1 lead. This was positioned in the mid RV septum. Pacing impedance 740 ohms, pacing threshold 0.75 V at 0.5 milliseconds. Ten volt test is negative. The LV lead was a [employer] model #1458q, 75 cm in length and serial number [id number]. Pacing thresholds were excellent and there was no diaphragmatic stimulation. The final pacing poles used were proximal 3 and proximal 4 poles and the threshold 0.875 V at 0.5 milliseconds, pacing impedance 730 ohms. All leads were secured to the underlying pectoralis fascia after removing the sheaths. Leads were connected to the generator ([employer] biventricular pacemaker model number [id number], serial number [id number]. Leads and the generator were then placed in subfascial pocket. The DF pin was capped and secured to the pectoralis muscle. The wound was closed in 3 layers and dressed per protocol. Under fluoroscopy, the externalized pacemaker lead was unscrewed and carefully withdrawn from the right ventricle. Fluoroscopy revealed no displacement of any other lead as the right-sided RV lead was unscrewed and removed. Hemostasis was assured. RESULT: 1. Successful biventricular pacemaker implantation for management of symptomatic 3:1 AV block, second-degree AV block. 2. Extraction of the externalized pacing lead from the right side. The patient tolerated the procedure well without any acute complications. He was programmed to DDD mode 60 to 130 ppm with an AV delay of about 200 milliseconds with an LV offset of 20 milliseconds. VEDA / SAEID: [id number] /
[2019-04-07] MEDS: PANTOPRAZOLE 40 MG TABLET PO SCH (06:06)
[2019-04-07] MEDS ORDERED: LOSARTAN-HCTZ 50-12.5 MG 1 EACH TAB PO SCH (09:00)
[2019-04-07] MEDS ORDERED: METOPROLOL SUCCINATE (ER) 100 MG TAB.ER.24H PO SCH (09:00)
--- NOTE | 2019-04-07 09:00 | XR ---
EXAMINATION TYPE: XR chest 2V DATE OF EXAM: 04/07/2019 COMPARISON: 04/04/2019 HISTORY: Shortness of breath TECHNIQUE: Frontal and lateral views of the chest are obtained. FINDINGS: Dual-lead pacer is noted to be in place with the distal leads within the right atrium and right ventr icle respectively. Scattered senescent parenchymal changes noted. Hyperinflation compatible with COPD. No evidence for infiltrate. No evidence for atelectasis. Heart size is stable. Mediastinal structures are stable and grossly unremarkable. No evidence for hilar prominence. Degenerative changes dorsal spine. IMPRESSION: 1. No evidence for acute pulmonary disease.
[2019-04-07] MEDS: GABAPENTIN 400 MG CAP PO SCH ×3 (09:03→17:19)
[2019-04-07] MEDS: FERROUS SULFATE 325 MG TAB PO SCH (09:03)
[2019-04-07] MEDS: THIAMINE 100 MG TAB PO SCH (09:03)
[2019-04-07] MEDS: CYANOCOBALAMIN 500 MCG TAB PO SCH (09:03)
[2019-04-07] MEDS: FOLIC ACID 1 MG TAB PO SCH (09:03)
[2019-04-07] MEDS: NITROFURANTOIN MONOHYD/M-CRYST 100 MG CAP PO SCH (09:05)
[2019-04-07] MEDS: PRIMIDONE 250 MG TAB PO SCH (09:05)
[2019-04-07] MEDS: CARBIDOPA-LEVODOPA ER 25-100MG 1 EACH TABLET.ER PO SCH ×3 (09:05→17:18)
[2019-04-07] MEDS: VITAMIN E (DL,TOCOPHERYL ACET) 400 UNIT CAP PO SCH (09:06)
[2019-04-07 11:07] VITALS: PULSE 60
[2019-04-07] MEDS: MAGNESIUM OXIDE 400 MG TAB PO SCH (11:10)
--- NOTE | 2019-04-07 11:53 | ECHOF ---
Referral Reason:LVEF MEASUREMENTS -------- HEIGHT: 182.9 cm WEIGHT: 84.4 kg BP: 148/86 RVIDd: 3.6 cm (< 3.3) IVSd: 1.7 cm (0.6 - 1.1) LVIDd: 4.4 cm (3.9 - 5.3) LVPWd: 1.9 cm (0.6 - 1.1) IVSs: 2.2 cm LVIDs: 2.8 cm LVPWs: 2.4 cm LAESV Index (A-L): 59.73 ml/m Ao Diam: 3.0 cm (2.0 - 3.7) AV Cusp: 1.8 cm (1.5 - 2.6) LA Diam: 5.3 cm (2.7 - 3.8) MV EXCURSION: 17.354 mm (> 18.000) MV EF SLOPE: 43 mm/s (70 - 150) EPSS: 1.4 cm MV E Bin: 0.48 m/s MV DecT: 379 ms MV A Bin: 0.83 m/s MV E/A Ratio: 0.58 AR PHT: 625 ms RAP: 5.00 mmHg RVSP: 39.83 mmHg FINDINGS -------- BBB This was a technically difficult study with suboptimal views. The left ventricular size is normal. There is severe concentric left ventricular hypertrophy. Ove rall left ventricular systolic function is severely impaired with, an EF between 20 - 25 %. The dayday stolic filling pattern indicates impaired relaxation 10.46. Sigmoid Septum Septal wall motion is delayed, and consistent with conduction delay/bundle branch block. The right ventricle is mildly enlarged. LA is severely dilated >40 ml/m2 Electronic pacemaker lead seen in the right atrial cavity. RA appears enlarged. Lumason used Interatrial and interventricular septum intact. Aortic valve is trileaflet and is moderately thickened. There is mild aortic valve sclerosis. The re is [id number] aortic regurgitation. There is no evidence of aortic stenosis. Mild mitral annular calcification present. Mild mitral regurgitation is present. Mild tricuspid regurgitation present. There is mild pulmonary hypertension. The right ventricular systolic pressure, as measured by Doppler, is 39.83mmHg. There is no pulmonic regurgitation present. The aortic root size is normal. Normal inferior vena cava with normal inspiratory collapse consistent with estimated right atrial pre ssure of 5 mmHg. There is no pericardial effusion. CONCLUSIONS -------- 1. BBB 2. This was a technically difficult study with suboptimal views. 3. The left ventricular size is normal. 4. There is severe concentric left ventricular hypertrophy. 5. Overall left ventricular systolic function is severely impaired with, an EF between 20 - 25 %. 6. The diastolic filling pattern indicates impaired relaxation 10.46.. 7. Sigmoid Septum 8. Septal wall motion is delayed, and consistent with conduction delay/bundle branch block. 9. The right ventricle is mildly enlarged. 10. LA is severely dilated >40 ml/m2 11. Electronic pacemaker lead seen in the right atrial cavity. 12. RA appears enlarged. 13. Lumason used 14. Interatrial and interventricular septum intact. 15. Aortic valve is trileaflet and is moderately thickened. 16. There is mild aortic valve sclerosis. 17. There is qzrj-pr-kzueuqir aortic regurgitation. 18. There is no evidence of aortic stenosis. 19. Mild mitral annular calcification present. 20. Mild mitral regurgitation is present. 21. Mild tricuspid regurgitation present. 22. There is mild pulmonary hypertension. 23. The right ventricular systolic pressure, as measured by Doppler, is 39.83mmHg. 24. There is no pulmonic regurgitation present. 25. The aortic root size is normal. 26. Normal inferior vena cava with normal inspiratory collapse consistent with estimated right atrial pressure of 5 mmHg. 27. There is no pericardial effusion. BANQUET WAITER/WAITRESS: Trice Tilley RDCS
[2019-04-07] MEDS: IBUPROFEN 800 MG TAB PO PRN (14:45)
--- NOTE | 2019-04-07 15:14 | P.PN ---
Subjective This is Diya Davis PA-C dictating a progress note on this patient The patient was interviewed and examined by me as well as by Dr. Ventura Case discussed with Dr. 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, second degree status post temporary externalized pacemaker placement and extraction with permanent BI ventricular pacemaker placement Reduced LV systolic function, EF 20-25% Hypertension, blood pressure has been elevated PLAN: Patient may be discharged once the antibiotics complete [facility] with [facility] within a week Increase metoprolol to 100 mg and added losartanhydrochlorothiazide Maximize treatment of cardiomyopathy with beta blockers, Reece inhibitors, statins, aspirin, consider adding spironolactone in the future Workup for cardiomyopathy outpatient HPI/interval history Patient is a 78-year-old male who presented to the emergency department for evaluation of a slow heart rate. He was found to have severe bradycardia with advanced heart block. A temporary externalized pacemaker was placed. Echocardiogram showed reduced LV systolic function, EF 20-25%. A permanent biventricular pacemaker was placed. He tolerated the procedure well. Patient seen and examined resting comfortably in bed. States his chest is "a little sore" but he is otherwise doing well. Denies any shortness of breath or palpita tions. Has been able to get up and walk around without any difficulties. EXAMINATION Patient is afebrile, pulse 60, respirations 18, blood pressure 179/80, oxygen saturation 97% on room air Pacemaker dressing clean dry and intact Lungs clear to auscultation bilaterally Heart is regular, soft ejection systolic murmur appreciated No lower extremity edema noted No elevated JVD REVIEW OF LABS, ECG Pacemaker check revealed normal functioning device EKG revealed AV sequentially biventricular paced rhythm Chest x-ray showed no pneumothorax Potassium 4.7, BUN 18, creatinine 1.09 Objective - Vital Signs Vital signs: Vital Signs Temp 97.9 F 04/07/19 11:06 Pulse 60 04/07/19 11:06 Resp 18 04/07/19 11:06 BP 179/80 04/07/19 11:06 Pulse Ox 97 04/07/19 11:06 Intake & Output 04/06/19 04/07/19 04/07/19 18:59 06:59 18:59 Intake Total 250 450 480 Output Total 600 Balance 250 -150 480 Weight 83 kg Intake: IV 250 50 Clindamycin 900 mg In 50 50 Dextrose 5% in Water 50 ml @ 50 mls/hr IVPB ONCE ONE Rx#:[id number] Intake, IV Titration 400 Amount ACETAMINOPHEN IV (For NPO 400 ) 1,000 mg In Empty Bag 1 bag @ 400 mls/hr IVPB ONCE ONE Rx#:[id number] Oral 480 Output: Urine 600 Other: Voiding Method Urinal Urinal Urinal # Voids 1 1 1 - Labs CBC & Chem 7: 04/05/19 14:11 04/06/19 06:36
[2019-04-07 16:06] VITALS: BP 172/84; RESP 16; TEMP 98.1
[2019-04-07] MEDS: ASPIRIN 81 MG PO SCH (17:19)
[2019-04-07] MEDS: FINASTERIDE 5 MG TAB PO SCH (17:19)
--- NOTE | 2019-04-10 23:37 | P.DS ---
Providers Date of admission: 04/04/19 17:02 Expected date of discharge: 04/10/19 Attending physician: Eladio Ga Consults: 04/04/19 17:02 Consult Physician Stat Consulting Provider: Hemant Ventura Consult Reason/Comments: complete heart block Do you want consulting provider notified?: Already Contacted Primary care physician: Patti Faustin [facility] Course: Hospital course: This is a very pleasant [address] Faustin. Chronic stable medical conditions include GERD, hypertension, BPH, Parkinson's disease, rosacea peripheral neuropathy lower extremity. Patient closed about 6 months has been feeling weak and tired and they noted that the patient's heart rate has been going down. Sometimes. He was was even having falls and this was as scribed to his Parkinson's. Eventually patient on himself for Holter monitor from the [facility]. The cardiac yesterday that his heart rate dropped down to about 30 and for that reason patient was sent in here. Patient also has been getting dizzy lightheaded. Getting tired very easily. Patient normally does use a cane. Patient's EKG revealed 3: [address] All Peralta from cardiology to the patient and had a successful implantation of a temporary, externalized permanent pacemaker. Permanent biventricular pacemaker was placed. Consultation: Dr. All Peralta from Physical examination: VITAL SIGNS: 98.1, 60, 16, 172/84, 97% room air GENERAL: Sitting up in a chair, comfortable. EYES: Pupils equal. Conjunctiva normal. HEENT: External appearance of nose and ears normal, oral cavity grossly normal. NECK: JVD not raised; masses not palpable. HEART: Heart sounds irregular; no edema. LUNGS: Respiratory rate normal; slightly decreased breath sounds. ABDOMEN: Soft, nontender, liver spleen not palpable, no masses palpable. NEUROLOGICAL: Cranial nerves grossly intact; no facial asymmetry, power and sensation grossly intact, fine tremors. 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, from hypertensive heart disease -GERD -Essential hypertension -BPH -Idiopathic Parkinson's disease -Chronic rosacea -Peripheral neuropathy from Parkinson disorder Disposition: Home Patient Condition at Discharge: Stable Plan - Discharge Summary Discharge Rx Participant: No New Discharge Prescriptions: New Losartan-Hctz 50-12.5 mg [Hyzaar 50-12.5] 1 each PO DAILY #90 tablet Pravastatin Sodium [Pravachol] 20 mg PO DAILY #90 tab Metoprolol Succinate [Toprol Xl] 100 mg PO DAILY #90 tab.er.24h Continue Folic Acid 1 mg PO DAILY Cholecalciferol [Vitamin D3 (25 Mcg = 1000 Iu)] 1,000 unit PO DAILY Thiamine [Vitamin B-1] 100 mg PO DAILY Ammonium Lactate Cream [Lac-Hydrin 12% Cream] 1 applic TOPICAL DAILY PRN PRN Reason: DRY CRACKED FEET Primidone [Mysoline] 125 mg PO BID Acetaminophen Tab [Tylenol] 1,000 mg PO DAILY PRN PRN Reason: Pain Tamsulosin [Flomax] 0.4 mg PO HS Omeprazole [PriLOSEC] 20 mg PO AC-BRKFST Nortriptyline [Pamelor] 25 mg PO HS Ubidecarenone [Co Q-10] 100 mg PO DAILY Magnesium Oxide [Mag-Ox] 250 mg PO DAILY Krill/Om-3/Dha/Epa/Phospho/Ast [[place]-3 Krill Oil 300 mg Sfgl] 900 mg PO DAILY Gabapentin [Neurontin] 400 mg PO QID Diclofenac Sodium [Voltaren Gel] 1 applic TOPICAL DAILY PRN PRN Reason: Pain Cyanocobalamin (Vitamin B-12) [Vitamin B-12] 1,000 mcg PO DAILY Carbidopa-Levodopa ER 25-100Mg [Sinemet CR 25-100 mg] 1 tab PO QID Vitamin E (Dl,Tocopheryl Acet) [Vitamin E] 400 unit PO DAILY Ibuprofen [Motrin] 800 mg PO BID PRN PRN Reason: LEG PAIN HYDROcodone/APAP 10-325MG [[place] 10-325] 1 tab PO DAILY PRN PRN Reason: LEG PAIN Finasteride [Proscar] 5 mg PO PC-SUPPER Donepezil [Aricept] 10 mg PO HS Aspirin [[place] Aspirin EC] 81 mg PO PC-SUPPER Nitrofurantoin Monohyd/M-Cryst [Macrobid] 100 mg PO BID Ferrous Sulfate [Feosol] 325 mg PO DAILY Discontinued Losartan [Cozaar] 50 mg PO BID Discharge Medication List Acetaminophen Tab [Tylenol] 1,000 mg PO DAILY PRN 10/01/17 [History] Ammonium Lactate Cream [Lac-Hydrin 12% Cream] 1 applic TOPICAL DAILY PRN 10/01/17 [History] Carbidopa-Levodopa ER 25-100Mg [Sinemet CR 25-100 mg] 1 tab PO QID 10/01/17 [History] Cholecalciferol [Vitamin D3 (25 Mcg = 1000 Iu)] 1,000 unit PO DAILY 10/01/17 [History] Cyanocobalamin (Vitamin B-12) [Vitamin B-12] 1,000 mcg PO DAILY 10/01/17 [History] Diclofenac Sodium [Voltaren Gel] 1 applic TOPICAL DAILY PRN 10/01/17 [History] Folic Acid 1 mg PO DAILY 10/01/17 [History] Gabapentin [Neurontin] 400 mg PO QID 10/01/17 [History] Krill/Om-3/Dha/Epa/Phospho/Ast [[place]-3 Krill Oil 300 mg Sfgl] 900 mg PO DAILY 10/01/17 [History] Magnesium Oxide [Mag-Ox] 250 mg PO DAILY 10/01/17 [History] Nortriptyline [Pamelor] 25 mg PO HS 10/01/17 [History] Omeprazole [PriLOSEC] 20 mg PO AC-BRKFST 10/01/17 [History] Primidone [Mysoline] 125 mg PO BID 10/01/17 [History] Tamsulosin [Flomax] 0.4 mg PO HS 10/01/17 [History] Thiamine [Vitamin B-1] 100 mg PO DAILY 10/01/17 [History] Ubidecarenone [Co Q-10] 100 mg PO DAILY 10/01/17 [History] Aspirin [[place] Aspirin EC] 81 mg PO PC-SUPPER 04/04/19 [History] Donepezil [Aricept] 10 mg PO HS 04/04/19 [History] Ferrous Sulfate [Feosol] 325 mg PO DAILY 04/04/19 [History] Finasteride [Proscar] 5 mg PO PC-SUPPER 04/04/19 [History] HYDROcodone/APAP 10-325MG [[place] 10-325] 1 tab PO DAILY PRN 04/04/19 [History] Ibuprofen [Motrin] 800 mg PO BID PRN 04/04/19 [History] Nitrofurantoin Monohyd/M-Cryst [Macrobid] 100 mg PO BID 04/04/19 [History] Vitamin E (Dl,Tocopheryl Acet) [Vitamin E] 400 unit PO DAILY 04/04/19 [History] Losartan-Hctz 50-12.5 mg [Hyzaar 50-12.5] 1 each PO DAILY #90 tablet 04/07/19 [ Rx] Metoprolol Succinate [Toprol Xl] 100 mg PO DAILY #90 tab.er.24h 04/07/19 [Rx] Pravastatin Sodium [Pravachol] 20 mg PO DAILY #90 tab 04/07/19 [Rx] Follow up Appointment(s)/Referral(s): [facility] [Provider Group] - 04/12/19 11:00 am (Wednesday -device check only) Hemant Ventura MD [STAFF PHYSICIAN] - 07/05/19 2:00 pm (Wednesday with Cheryle MORA) Patti Faustin DO [Primary Care Provider] - 04/13/19 11:00 am () Patient Instructions/Handouts: Pacemaker (DC) Activity/Diet/Wound Care/Special Instructions: PATIENT EDUCATION MATERIAL Instructions following a heart rhythm device implant. 1. Keep dressing DRY for 5 DAYS. You may cover the area with Saran or Cling Wrap, prior to a shower. 2. The dressing will be removed in the Device Clinic at [facility]. Absorbable sutures were used to close the wound. 3. Avoid raising the left arm above the shoulder level. 4 week restriction 4. Avoid arm movements, like backscratching, rubbing the head, or pulling on a cord. 4 weeks restriction 5. Gentle range of motion movements of the shoulder, closest to the incision should be performed to avoid a frozen shoulder. (Pendulum exercises of the shoulder) 6. The opposite arm may be used freely. 7. Avoid driving for 7 days. 8. Avoid activities such as golfing, swimming, weed whacking, lifting more than 10 pounds weight, bowling, gymnastics and weight training/lifting. (6 weeks restriction) 9. Activities such as wood chopping with an axe, pull-ups in the gymnasium, power lifting, arc-welding, being close to home induction cooktops will always be a problem. 10. Arm sling is only a reminder not to raise the arm above the head. You do not need to keep the arm completely immobilized. Your free to move the arm and use it and for normal activities. In case of any problems, please call [facility], [facility], @ [phone], Attention: Device Clinic Device clinic follow-up in 5 days Follow-up with primary inside sales assistant in 2-3 months,Follow-up with Dr. Ventura/Diya Davis/Cheryle Fishman New medications include Metoprolol succinate 100 mg by mouth daily Losartan and hydrochlorothiazide 50/12.5 mg by mouth daily Pravastatin 20 mg daily Baby aspirin Patient may go home from a cardiac standpoint if device interrogation is within normal limits, chest x-ray is within normal limits and antibiotics are completed Discharge Disposition: HOME SELF-CARE
== END 2019-04-07 17:56 | disposition home or self-care (01) | DRG 243 ==
LOC: EC 16:01 → 3SCARD 17:02
PROVIDERS: ADMIT Hospitalist; ATTEND Hospitalist
PROC: 5A1223Z Performance of Cardiac Pacing, Continuous (ICD-10-PCS; 2019-04-04)
PROC: 0JH606Z Insertion of Pacemaker, Dual Chamber into Chest Subcutaneous Tissue and Fascia, Open Approach (ICD-10-PCS; principal; 2019-04-06 16:50)
PROC: 02HL3JZ Insertion of Pacemaker Lead into Left Ventricle, Percutaneous Approach (ICD-10-PCS; principal; 2019-04-06 16:50)
PROC: 02HK3JZ Insertion of Pacemaker Lead into Right Ventricle, Percutaneous Approach (ICD-10-PCS; principal; 2019-04-06 16:50)
PROC: 02H70JZ Insertion of Pacemaker Lead into Left Atrium, Open Approach (ICD-10-PCS; principal; 2019-04-06 16:50)
DX: I44.2 Atrioventricular block, complete (principal); I42.9 Cardiomyopathy, unspecified; I45.2 Bifascicular block; F02.80 Dementia in other diseases classified elsewhere, unspecified severity, without behavioral disturbance, psychotic disturbance, mood disturbance, and anxiety; G20 Parkinson's disease; G62.9 Polyneuropathy, unspecified; I11.9 Hypertensive heart disease without heart failure; K21.9 Gastro-esophageal reflux disease without esophagitis; L71.9 Rosacea, unspecified; N40.0 Benign prostatic hyperplasia without lower urinary tract symptoms; R29.6 Repeated falls; Z88.0 Allergy status to penicillin; Z79.899 Other long term (current) drug therapy; F17.290 Nicotine dependence, other tobacco product, uncomplicated; Z98.42 Cataract extraction status, left eye; Z98.41 Cataract extraction status, right eye; Z88.8 Allergy status to other drugs, medicaments and biological substances
CPT/HCPCS: 33208; 33210; 33225; 36415; 71045; 71046; 80048; 83880; 84484; 85025; 93005; 93306; 99285

== ENCOUNTER → 2020-04-02 | Outpatient (CLI) | payer OTHER ==
[2020-04-02 08:03] LABS: HCT 33.9 % (39.0-53.0); HGB 10.4 gm/dL (13.0-17.5); Hypochromasia Slight; MCHC 30.6 g/dL (31.0-37.0); MCV 91.6 fL (80.0-100.0); Mean Platelet Volume 7.5; Platelet Count 275 k/uL (150-450); RDW 15.5 % (11.5-15.5); WBC 5.9 k/uL (3.8-10.6)
[2020-04-02 13:20] LABS: African American GFR (CKD) 83.8 (60.0-200.0); Anion Gap 7.9 mmol/L (4.00-12.00); Calcium 9.8 mg/dL (8.7-10.3); Carbon Dioxide 27.1 mmol/L (21.6-31.8); Non-African American GFR(CKD) 72.3 (60.0-200.0); Potassium 4.5 mmol/L (3.5-5.5)
== END | disposition home or self-care (01) ==
LOC: LABWHC1 07:25
PROVIDERS: ATTEND Physician Assistant
DX: I47.1 Supraventricular tachycardia (principal); I48.0 Paroxysmal atrial fibrillation
CPT/HCPCS: 36415; 80048; 84443; 85027

== ENCOUNTER → 2023-06-24 | Outpatient (CLI) | payer MEDICARE ==
[2023-06-24 17:09] LABS: Basophils # (A) 0.04 X 10*3/uL (0.00-0.10); Basophils % (A) 0.7 %; Eosinophils # (A) 0.14 X 10*3/uL (0.04-0.35); Eosinophils % (A) 2.4 %; HCT 39.9 % (39.6-50.0); HGB 12.9 d/dL (13.0-17.0); Lymphocytes % (A) 17.4 %; MCH 32.6 pg (27.0-32.0); MCHC 32.3 d/dL (32.0-37.0); MCV 100.8 FL (80.0-97.0); Mean Platelet Volume 10.9 FL (9.5-12.2); Monocytes # (A) 0.58 X 10*3/uL (0.20-1.00); Monocytes % (A) 10.1 %; NRBC Per 100 WBC 0 X 10*3/uL (0.00-0.01); Neutrophils # (A) 3.95 X 10*3/uL (1.80-7.70); Neutrophils % (A) 68.9 %; Platelet Count 215 X 10*3/uL (140-440); RBC 3.96 X 10*6/uL (4.40-5.60); RDW 11.9 % (11.5-14.5); WBC 5.74 X 10*3/uL (4.50-10.00)
[2023-06-24 17:17] LABS: ALT 21 U/L (10-49); AST 18 U/L (14-35); Albumin 4.4 d/dL (3.8-4.9); Albumin/Globulin Ratio 1.91 Ratio (1.60-3.17); Alkaline Phosphatase 62 U/L (41-126); Blood Urea Nitrogen 21.9 mg/dL (9.0-27.0); Carbon Dioxide 26.7 mmol/L (21.6-31.8); Chloride 102 mmol/L (96-109); Globulin 2.3 d/dL (1.6-3.3); Glucose 89 mg/dL (70-110); Potassium 4.8 mmol/L (3.5-5.5); Prostate Specific Antigen 2.57 ng/mL (0.000-6.500); Sodium 141 mmol/L (135-145); T4, Free (Free Thyroxine) 1.06 ng/dL (0.80-1.80); Total Bilirubin 0.4 mg/dL (0.3-1.2); Total Protein 6.7 d/dL (6.2-8.2)
== END | disposition home or self-care (01) ==
LOC: LABWHC1 10:26
PROVIDERS: ATTEND Psychiatry & Neurology Neurology
DX: Z00.00 Encounter for general adult medical examination without abnormal findings (principal); N40.0 Benign prostatic hyperplasia without lower urinary tract symptoms; R41.3 Other amnesia; R25.1 Tremor, unspecified
CPT/HCPCS: 36415; 80053; 82306; 82607; 84153; 84439; 84443; 85025

== ENCOUNTER → 2024-03-24 | Outpatient (CLI) | payer MEDICARE ==
[2024-03-24 19:16] LABS: Chol/HDL Ratio 2.83 Ratio; LDL Cholesterol,Calculated 73.7 mg/dL (0.0-131.0)
== END | disposition home or self-care (01) ==
LOC: LABWHC1 14:43
PROVIDERS: ATTEND Internal Medicine Clinical Cardiac Electrophysiology
DX: E78.5 Hyperlipidemia, unspecified (principal); R73.03 Prediabetes
CPT/HCPCS: 36415; 80061; 83036